=== PATIENT | male | born 1985 | race Caucasian/White ===

== ENCOUNTER 2024-12-01 15:37 | Emergency (ER) | payer OTHER, SELFPAY ==
[2024-12-01] VITALS (19 sets, daily range): BP systolic 132–168; BP diastolic 81–94; PULSE 81–119; TEMP 37.3; O2SAT 93–98; BMI 33.8
--- OUTSIDE RECORDS SUMMARY | 2024-12-01 15:50 | XMS_ITS | Clinical Summary ---
Author Organization [facility] Address [address] [place] [address] Phone Care Team Providers Care General Dentist/Owner Name Role Phone Case, Siria Zafar WAREHOUSE ORDER SELECTOR-PSYCHIATRIC AIDES TEACHER Primary Care Provider Social History Tobacco Use Types Packs/Day Years Used Date Smoking Tobacco: Never Assessed Sex and Gender Information Value Date Recorded Sex Assigned at Not on file Legal Sex Male 9:12 AM EST Gender Identity Not on file Sexual Orientation Not on file Plan of Treatment Health Maintenance Due Date Last Done Comments HIV Screening 1985 Yearly Adult Physical 1985 MMR Vaccines (1 of 1 - Stand radha series) 1988 Varicella Vaccines (1 of 2 - 13+ 2-dose series) 2000 Diabetes Screening 2005 Hepatitis C Screening 2005 Hepatitis B Vaccines (1 of 3 - 19+ 3-dose series) 2006 DTaP/Tdap/Td Vaccines (1 - Tdap) 02/24/2024 02/23/20 24 COVID-19 Vaccine ( - 2023-2 5 season) 2024 Influenza Vaccine (Season Ended) 2025 05/02/20 20 Lipid Panel 07/21/2029 07/21/2024 Zoster Vaccines (1 of 2) 2037 HIB Vaccines Aged Out No longer eligi ble based on patient's age to complete this topic HPV Vaccines Aged Out No longer eligi ble based on patient's age to complete this topic Hepatitis A Vaccines Aged Out No long er eligible based on patient's age to complete this topic IPV Vaccines Aged Out No longer eligi ble based on patient's age to complete this topic Meningococcal Vaccine Aged Out No anupam page eligible based on patient's age to complete this topic Pneumococcal Vaccine: Pediat rics and At-Risk Adult Patients Aged Out No longer martir sheilale based on patient's age to complete this topic Rotavirus Vaccines Aged Out No longer eligible based on patient's age to complete this topic Care Teams General Dentist/Owner Relationship Specialty Start Date End Date Case, Siria L, WAREHOUSE ORDER SELECTOR-PSYCHIATRIC AIDES TEACHER [address] [place] [address] PCP - General Family Medicine 08/09/24
--- OUTSIDE RECORDS SUMMARY | 2024-12-01 15:50 | XMS_ITS | Clinical Summary ---
Author Organization [facility] Address [address] [place] [address] Care Team Providers Care Fuel Technician Name Role Phone Jane Lerma MD Primary Care Provider [phone] Allergies No known active allergies Medications atorvastatin (Lipitor) 20 MG tabletIndications: Mixed hyperlipidemia (CMS/HCC) Take 1 tablet (20 mg) by mouth Daily 90 tablet 3 07/21/19 25 026 Active amLODIPine (Norvasc) 2.5 MG tabletIndications: Benign essential hypertension (CMS/HCC) Take 1 tablet (2.5 mg) by mouth Daily 90 tablet 3 07/21/19 25 026 Active hydrocortisone 2.5 % creamIndications:A thlete's foot on left Apply topically 2 (two) times a day Apply to left foot with ketoconazole cream twice a day for 30 days and then use as needed for flare ups 60 g 2 07/21/19 25 026 Active Active Problems No known active problems Encounters Date Type Department Care Team Description 09/21/2024 Telephone [facility] [address] [place] [address] Edilia Ricks MA from Last 3 Months Family History Medical History Relation Name Comments Heart disease Father Heart disease Mother Hypertension Mother Relation Name Status Comments Father Mother Social History Tobacco Use Types Packs/Day Years Used Date Smoking Tobacco: Unknown Smokeless Tobacco: Current Chew Tobacco Cessation:Ready to Q uit: Not Asked; Counseling Given: Not Answered Sex and Gender Information Value Date Recorded Sex Assigned at Not on file Legal Sex Male 6:33 PM EDT Gender Identity Not on file Sexual Orientation Not on file Last Filed Vital Signs Vital Sign Reading Time Taken Comments Blood Pressure 132/82 07/21/2024 9:14 AM EST Pulse 80 07/21/2024 9:14 AM EST Temperature 36.6 C (97.8 F) 07/21/2024 9:14 AM EST Respiratory Rate 17 07/21/2024 9:14 AM EST Oxygen Saturation 97% 07/21/2024 9:14 AM EST Inhaled Oxygen Concentration - - Weight 109 kg (240 lb) 07/21/2024 9:14 AM EST Height 172.7 cm (5' 8 ) 07/21/2024 9:14 AM EST Body Mass Index 36.49 07/21/2024 9:14 AM EST Plan of Treatment Health Maintenance Due Date Last Done Comments Influenza Vaccine (Season Ended) 2025 05/02/20 20 Insurance [employer] Care Teams Fuel Technician Relationship Specialty Start Date End Date Jane Lerma MD [address] [place] [address] PCP - General Family Medicine 05/12/24
--- OUTSIDE RECORDS SUMMARY | 2024-12-01 15:50 | XMS_ITS | Clinical Summary ---
Author Organization [facility] Address [address] [place] [address] Care Team Providers Care Epic Manager Name Role Phone Unavailable Primary Care Provider Unavailabl e Social History Tobacco Use Types Packs/Day Years Used Date Smoking Tobacco: Never Assessed Area Deprivation Index Answer Date Kirk rded National Score (1-100), lower number is lower ri sk Not on file 06/14/2020 State Score (1-10), lower number is lower risk N ot on file 06/14/2020 Data from: https://www.neighborhoodatlas.medicine.[facility]/. Last address used for calculation Not on file 06/14/2020 Sex and Gender Information Value Date Recorded Sex Assigned at Not on file Legal Sex Male 8:30 AM EDT Gender Identity Not on file Sexual Orientation Not on file Plan of Treatment Health Maintenance Due Date Last Done Comments Anxiety Screening 2005 Depression Screening 2005 HIV Screening 2005 Hepatitis C Screening 2005 DTaP,Tdap,Td Vaccine (1 - Tdap) 2006 Hepatitis B Vaccine (1 of 3 - 19+ 3-dose series) 04/08 Lipid Screening 2022 Covid-19 Vaccine ( season) 2024 Influenza Vaccine (Season Ended) 2025 Insurance [facility] P[facility]
--- OUTSIDE RECORDS SUMMARY | 2024-12-01 15:50 | XMS_ITS | Encounter Summary ---
Author Organization [facility] Address [address] [place] [address] Phone Care Team Providers Care Epic Ambulatory Analysts Name Role Phone Chiquita Bateman Primary Care Provider Reason for Referral * Imaging (Routine) - Pending Review Specialty Diagnoses / Procedures Referred By Ivan lyons Referred To Contact Radiology Diagnoses Family history of ischemic heart disease and other diseases of the circulatory system Mixed hyperlipidemia Essential (primary) hypertension Procedures CT cardiac scoring wo IV contrast Chiquita Bateman APRN-CNP [address] [place] [address] Phone: tel: fax: Referral ID Status Reason Start Date Expiration Date Visits Requested Visits Authorized [id number] Pending Review Perform Procedure 07/26/2024 07/26/2025 1 1 Encounter Details Date Type Department Care Team (Late st Contact Info) Description 07/26/2024 Transcribe Orders [facility] [[email or web address] [address] [place] [address] Chiquita Bateman APRN-CNP [address] [place] [address] Family history of ischemic heart disease and other diseases of the circulatory system (Primary Dx); Mixed hyperlipidemia; Essential (primary) hypertension Social History Tobacco Use Types Packs/Day Years Used Date Smoking Tobacco: Never Assessed Sex and Gender Information Value Date Recorded Sex Assigned at Not on file Legal Sex Male 9:12 AM EST Gender Identity Not on file Sexual Orientation Not on file documented as of this encounter Plan of Treatment Not on file documented as of this encounter Results * CT cardiac scoring wo IV contrast (08/09/2024 7:44 PM EST) Anatomical Region Laterality Modality Thoracic, Chest Computed Tomogra phy 08/10/2024 3:57 PM EST 08/10/2024 6:17 PM EST Addenda Addendum by Julieta Bhatti MD on 08/10/2024 6:16 PM EST Interpreted By: Tino Bhatti, ADDENDUM: Technical: The following is to serve as an over-read for an unenhanced cardiac CT, to evaluate the extravascular structures. Contiguous unenhanced CT sections are performed from level the ella to the upper abdomen. Findings: The visualized portions of both lungs are clear. There is no sign of pathologic lymph node enlargement. There is no pericardial or pleural effusion. Images through the upper abdomen are unremarkable. The visualized osseous structures are unremarkable. Findings: The visualized extravascular structures are within normal limits. Signed by: Tino Bhatti 08/10/2024 6:16 PM -------- ORIGINAL REPORT -------- Dictation workstation: [id number] Impressions 08/10/2024 3:56 PM EST 1. Coronary artery calcium score of 36*. 2. FLORENCE 90th percentile for age, gender, and race in asymptomatic patients. *Coronary Artery Agatston score Score risk Very low 1-99 Mildly increased 100-299 Moderately increased >300 Moderate to severely increased >800 Darien et al. JCCT 2016 (http://dx.doi.org/10.1016/j.jcct.2016.11.003) FLORENCE Percentile In general, greater than 75th percentile for age, gender, and race is considered to be a higher relative risk and higher lifetime risk condition. Greater than 75th percentile=moderate to severely increased relative risk irrespective of the score. Advise using FLORENCE 10 year CHD risk calculator below for better discrimination of risk. FLORENCE 10-Year CHD Risk with Coronary Artery Calcification can be calcuate using link below https://www.florence-nhlbi.org/MESACHDRisk/MesaRiskScore/RiskScore.aspx Mike. JACC 2015 (http://dx.doi.org/10.1016/j.j acc.2015.08.035) Reading Disability Case Manager: Dr. Tino Solares, Date: 08/10/2024 3:55 pm Signed by: Tino Solares 08/10/2024 3:56 PM Dictation workstation: [id number] Narrative 08/10/2024 3:56 PM EST Interpreted By: Tino Solares, STUDY: CT CARDIAC SCORING WO IV CONTRAST; 08/09/2024 7:44 pm INDICATION: Signs/Symptoms:SCREENING. COMPARISON: None. ACCESSION NUMBER(S): [id number] ORDERING CLINICIAN: CHIQUITA CASE TECHNIQUE: Using prospective ECG gating, CT scan of the coronary arteries was performed without intravenous contrast. Coronary calcium scoring was performed according to the method of Agatston. CT Dose-Length Product (DLP): 63.3 mGy*cm CT Dose Reduction Employed: Yes, prospective gating, iterative reconstruction. FINDINGS: The score and distribution of calcium in the coronary arteries is as follows: LM 0 LAD 36 LCx 0 RCA 0 Total 36 The visualized ascending thoracic aorta measures 3.2 cm in diameter. The heart is normal in size. No pericardial effusion is present. The main pulmonary artery, right and left pulmonary artery are normal in size. Procedure Note Tino Solares DO / Julieta Bhatti MD - 08/10/2024 Interpreted By: Tino Solares, STUDY: CT CARDIAC SCORING WO IV CONTRAST; 08/09/2024 7:44 pm INDICATION: Signs/Symptoms:SCREENING. COMPARISON: None. ACCESSION NUMBER(S): [id number] ORDERING CLINICIAN: CHIQUITA BATEMAN TECHNIQUE: Using prospective ECG gating, CT scan of the coronary arteries was performed without intravenous contrast. Coronary calcium scoring was performed according to the method of Agatston. CT Dose-Length Product (DLP): 63.3 mGy*cm CT Dose Reduction Employed: Yes, prospective gating, iterative reconstruction. FINDINGS: The score and distribution of calcium in the coronary arteries is as follows: LM 0 LAD 36 LCx 0 RCA 0 Total 36 The visualized ascending thoracic aorta measures 3.2 cm in diameter. The heart is normal in size. No pericardial effusion is present. The main pulmonary artery, right and left pulmonary artery are normal in size. IMPRESSION: 1. Coronary artery calcium score of 36*. 2. FLORENCE 90th percentile for age, gender, and race in asymptomatic patients. *Coronary Artery Agatston score Score risk Very low 1-99 Mildly increased 100-299 Moderately increased >300 Moderate to severely increased >800 Darien et al. JCCT 2016 (http://dx.doi.org/10.1016/j.jcct.2016.11.003) FLORENCE Percentile In general, greater than 75th percentile for age, gender, and race is considered to be a higher relative risk and higher lifetime risk condition. Greater than 75th percentile=moderate to severely increased relative risk irrespective of the score. Advise using FLORENCE 10 year CHD risk calculator below for better discrimination of risk. FLORENCE 10-Year CHD Risk with Coronary Artery Calcification can be calcuate using link below https://www.florence-nhlbi.org/MESACHDRisk/MesaRiskScore/RiskScore.aspx Mike. JACC 2014 (http://dx.doi.org/10.1016/j.j acc.2015.08.035) Reading Disability Case Manager: Dr. Tino Solares, Date: 08/10/2024 3:55 pm Signed by: Tino Solares 08/10/2024 3:56 PM Dictation workstation: [id number] Chiquita TUTTLE IM CT PROCEDURES Edit ed Result - Final documented in this encounter Visit Diagnoses Diagnosis Family history of ischemic heart disease and other diseases of the circulatory system- Primary Mixed hyperlipidemia Essential (primary) hypertension Unspecified essential hypertension Family history of ischemic heart disease and other diseases of the circulatory system Mixed hyperlipidemia Essential (primary) hypertension Unspecified essential hypertension documented in this encounter Care Teams Epic Ambulatory Analysts Relationship Specialty Start Date End Date Chiquita Batmean APRN-CNP [address] [place] [address] PCP - General Family Medicine 08/09/24 documented as of this encounter
--- OUTSIDE RECORDS SUMMARY | 2024-12-01 15:50 | XMS_ITS | Encounter Summary ---
Author Organization [employer] Address [id number] [address] [place] [address] Care Team Providers Care Bootmaker Name Role Phone Cecilio Mendenhall MD Primary Care Provider [phone] Reason for Visit * Reason Comments Med Refill Encounter Details Date Type Department Care Team (Late st Contact Info) Description 10/27/2023 Refill [facility] [address] [place] [address] [address] [place] [address] Cecilio Mendenhall MD [address] [place] [address], [address] [place], [place] [id number] Social History Tobacco Use Types Packs/Day Years Used Date Smoking Tobacco: Never Smokeless Tobacco: Never Alcohol Use Standard Drinks/Week Comments Yes 0 (1 standard drink = 0.6 oz pur e alcohol) PHQ-2 Answer Date Recorded Total Score 0 08/11/2022 Childcare Answer Date Recorded Childcare Unknown 12/14/2018 Employment Answer Date Recorded Employment Unknown 12/14/2018 Hunger Screening Answer Date Recorded Within the past 12 months we worried whether our food would run out before we got money to buy more. Never True 08/11/2022 Within the past 12 months th e food we bought just didn't last and we didn't have money to get more. Never True 08/11/2022 Sex and Gender Information Value Date Recorded Sex Assigned at Not on file Legal Sex Male 11:35 AM EDT Gender Identity Not on file Sexual Orientation Not on file documented as of this encounter Miscellaneous Notes * Telephone Encounter - Teodora Carter CMA - 10/27/2023 9:48 AM EDT Patient needs an appointment for further refills documented in this encounter Plan of Treatment Not on file documented as of this encounter Visit Diagnoses Not on filedocumented in this encounter Additional Health Concerns Assessment Noted Time PHQ-9 Depression Total Score: 0 08/11/19 23 3:22 PM EST documented as of this encounter Care Teams Bootmaker Relationship Specialty Start Date End Date Cecilio Mendenhall MD [address] [place] [address], [address] [place] [address] PCP - General Pediatrics 08/11/22 07/21/24 documented as of this encounter
--- OUTSIDE RECORDS SUMMARY | 2024-12-01 15:50 | XMS_ITS | Encounter Summary ---
Author Organization [facility] Address [facility] [address] [place] [address] Care Team Providers Care Machine Feeder Floorperson Name Role Phone Cecilio Mendenhall MD Primary Care Provider [phone] Reason for Visit * Reason Onset Date Comments Med Refill 05/09/2024 Encounter Details Date Type Department Care Team (Late st Contact Info) Description 05/09/2024 Refill [facility] [address] [facility] [address] [place] [address] Teodora Carter CMA Social History Tobacco Use Types Packs/Day Years [...] documented as of this encounter Care Teams Machine Feeder Floorperson Relationship Specialty Start Date End Date Cecilio Mendenhall MD [address] [place] [address], [address] [place] [address] PCP - General Pediatrics 08/11/22 07/21/24 documented as of this encounter
--- OUTSIDE RECORDS SUMMARY | 2024-12-01 15:50 | XMS_ITS | Clinical Summary ---
Author Organization [employer] [facility] Address [id number] [address] [place] [address] Care Team Providers Care Rn Faculty Name Role Phone Unavailable Primary Care Provider Unavailabl e Allergies No known active allergies Medications * This document contains information received from the source organization and may not represent a complete record from that organization. albuterol (PROVENTIL HFA;VENTOLIN HFA) 90 mcg/actuation inhalerIndicatio ns:Bronchitis Inhale 2 puffs 4 (four) times a day. 18 g 10/08/2023 Active atorvastatin (LIPITOR) 20 mg tablet Take 1 tablet (20 mg total) by mouth in the morning. 90 tablet 05/12/2024 Active Active Problems Problem Noted Date Diagnosed Date Hyperlipidemia Family History Medical History Relation Name Comments Hyperlipidemia Mother Relation Name Status Comments Father Alive Mother Alive Social History Tobacco Use Types Packs/Day Years Used Date Smoking Tobacco: Never Smokeless Tobacco: Never Tobacco Cessation:Counseling Given: No Alcohol Use Standard Drinks/Week Comments Yes 0 [...] got money to buy more. Never True 07/19/2024 Within the past 12 months th e food we bought just didn't last and we didn't have money to get more. Never True 07/19/2024 Sex and Gender Information Value Date Recorded Sex Assigned at Not on file Legal Sex Male 11:35 AM EDT Gender Identity Not on file Sexual Orientation Not on file Last Filed Vital Signs Vital Sign Reading Time Taken Comments Blood Pressure 127/81 07/19/2024 9:30 PM EST Pulse 71 07/19/2024 9:30 PM EST Temperature 36.8 C (98.3 F) 07/19/2024 6:43 PM EST Respiratory Rate 15 07/19/2024 9:30 PM EST Oxygen Saturation 95% 07/19/2024 9:30 PM EST Inhaled Oxygen Concentration - - Weight 105.7 kg (233 lb) 07/19/2024 6:43 PM EST Height 172.7 cm (5' 8 ) 07/19/2024 6:43 PM EST Body Mass Index 35.43 07/19/2024 6:43 PM EST Plan of Treatment Health Maintenance Due Date Last Done Comments Adult BMI Follow Up Plan 2005 Depression Screening 08/11/2023 08/11/2022 COVID-19 Vaccine ( season) 2024 Tobacco Screening 10/07/2024 10/08/2023 Influenza Vaccine 03/05/2025 05/02/2020 Adult BMI Screening 07/19/2025 07/19/2024 DTaP,Tdap and Td Vaccines (2 - Td or Tdap) 02/22/2034 02/23/2024 Medical Devices Not on file Insurance [employer]
--- NOTE | 2024-12-01 16:00 | ECG_ITS ---
[facility] Test Date: 2024-12-01 Pat Name: BASIM CARBAJAL Department: Room: - Gender: Male Photography Manager: : 1985 Requested By: 0923 Order Number: [id number] Reading MD: KAREN FLANNERY M.D. Measurements Intervals [place] Rate: 116 P: 60 [place]: 132 QRS: 33 QRSD: 90 T: 6 QT: 320 QTc: 389 Interpretive Statements 1120 Sinus tachycardia 4068 Nonspecific Twave abnormality 8102 Low QRS voltage in chest leads 9140 abnormal rhythm ECG No previous ECG available for comparison Electronically Signed On 12-01-2024 17:35:05 EDT by KAREN FLANNERY M.D.
--- NOTE | 2024-12-01 16:00 | XR_ITS ---
[facility] [place] [id number] Patient Name: BASIM CARBAJAL MRN: [id number] date: 1985 Sex: M Assigned Patient Location: ER Current Patient Location: ER Accession/Order Number: [id number] Exam Date: 12/01/2024 17:04 Report Date: 12/01/2024 17:05 At the request of: KAIDEN WEAVER Procedure: XR chest 2V XR chest 2V 12/01/2024 4:35 PM SIGNS AND SYMPTOMS: ^chest pain , tachycardia PROTOCOL: Frontal and lateral radiograph chest COMPARISON: None FINDINGS: The trachea is midline. The heart and mediastinal structures are within normal limits. The lung parenchyma is clear. The bony thorax is intact. Degenerative changes are noted in the thoracic spine. XR/XR chest 2V IMPRESSION: No acute cardiopulmonary pathology. Impression dictated by: Lance Richards M.D. 12/01/2024 5:05 PM Dictation Location: [facility]ITAL[facility] Electronically authenticated by: [id number] Y Date: 12/01/2024 17:05
[2024-12-01 16:09] LABS: Basophils Absolute Auto 0.1 10^3/uL (0.0-0.1); Basophils Percent Auto 0.6 % (0.2-2.0); Eosinophils Absolute Auto 0.5 10^3/uL (0.0-0.7); Eosinophils Percent Auto 4.9 % (0.9-7.0); Hematocrit 43.9 % (42.0-54.0); Hemoglobin 15.5 g/dL (14.0-18.0); Immature Granulocytes Abs Auto 0.05 10^3/uL (0.00-0.03); Immature Granulocytes Pct Auto 0.5 % (0.0-0.5); Lymphocytes Absolute Auto 2.9 10^3/uL (1.2-3.8); Lymphocytes Percent Auto 29.5 % (20.5-60.0); Mean Corpuscular HGB Conc 35.3 g/dL (29.9-35.2); Mean Corpuscular Hemoglobin 29.6 pg (25.9-34.0); Mean Corpuscular Volume 83.9 fL (80.0-94.0); Mean Platelet Volume 9.3 fL (9.5-13.5); Monocytes Absolute Auto 0.8 10^3/uL (0.3-0.8); Monocytes Percent Auto 8.7 % (1.7-12.0); Neutrophils Absolute Auto 5.4 10^3/uL (1.4-6.5); Neutrophils Percent Auto 55.8 % (43.0-75.0); Platelet Count 330 10^3/uL (150-450); Red Blood Count 5.23 10^6/uL (4.70-6.10); Red Cell Distribution Width 12.6 % (11.0-15.0); White Blood Count 9.7 10^3/uL (4.0-11.0)
--- NOTE | 2024-12-01 16:19 | ED.GENADUL1 ---
Documented by User: Emily Auguste 12/01/24 18:23 HPI HPI - General Adult General Chief complaint: Chest Pain Stated complaint: DIZZY, HEART RACING Time Seen by Provider: 12/01/24 15:55 Source: patient Mode of arrival: walk-in Limitations: no limitations History of Present Illness HPI narrative: 39-year-old male presents emergency room chief complaint of dizzy and heart racing. Patient states symptoms began prior to arrival. He states he took his Mounjaro shot earlier this morning drank coffee and followed by 2 monster drinks. Patient states he forgot to take his blood pressure medication. He began to feel heart racing and chest palpitations. He denies any pain at this time. He states he was sitting in his garage and the symptoms lasted for approximately 15 to 20 minutes. He denies any nausea or vomiting. He is alert and oriented. Denies known history of cardiac issues issues. History of hypertension but did not take his medicine prior to this incident. He did take his medication just prior to arrival to the emergency room. Related Data Home Medications ?Medication ?Instructions ?Recorded ?Confirmed amlodipine 2.5 mg tablet mg 12/01/24 atorvastatin 20 mg tablet mg 12/01/24 Allergies Allergy/AdvReac Type Severity Reaction Status Date / Time No Known Drug Allergies Allergy Verified 12/01/24 15:43 Opioid HPI Opioid Management Most Recent Opioid Data: Last Pain Scale 0 Today, 15:44 Review of Systems ROS Status of ROS 10 or more systems reviewed and unremarkable except as noted in history and below PFSH PFSH Social History Little interest or pleasure in doing things: not at all Feeling down, depressed, or hopeless: not at all Exam Narrative Exam Narrative: All Systems are negative except as noted/marked.All systems reviewed and otherwise negative Nurses note and vital signs reviewed and patient is not hypoxic. General: The patient appears well and in no apparent distress. Patient is resting comfortably on cart. Skin: Warm, dry, no pallor noted. There is no rash noted. Head: Normocephalic, atraumatic Eye: Normal conjunctiva, no drainage, EOMI. PERRL Ears, Nose, Mouth, and Throat: oral mucosa is moist. Nares patent. Mouth without vesicles. Ear canals patent. Tm's without Erythema Cardiovascular: Regular Rate and Rhythm Respiratory: Patient is in no distress, no accessory muscle use, lungs are clear to auscultation, no wheezing, rales or rhonchi Back: non-tender, no CVA tenderness bilaterally to percussion. GI: Normal bowel sounds, no tenderness to palpation, no masses appreciated. No rebound, guarding, or rigidity noted. Musculoskeletal: The patient has no evidence of calf tenderness, no pitting edema, symmetrical pulses noted bilaterally Neurological: A&O x4, normal speech Psychiatric: Cooperative Constitutional Vital Signs, click to edit/add: Last Vital Signs Temp 99.1 F 12/01/24 15:44 Pulse 119 H 12/01/24 15:44 Resp 19 12/01/24 15:44 BP 168/94 H 12/01/24 15:44 Pulse Ox 97 12/01/24 15:44 O2 Del Method Room Air 12/01/24 15:44 Course Vital Signs Vital signs: Vital Signs Temperature 99.1 F 12/01/24 15:44 Pulse Rate 119 H 12/01/24 15:44 Respiratory Rate 19 12/01/24 15:44 Blood Pressure 168/94 H 12/01/24 15:44 Pulse Oximetry 97 12/01/24 15:44 Oxygen Delivery Method Room Air 12/01/24 15:44 Temperature 99.1 F 12/01/24 15:44 Pulse Rate 119 H 12/01/24 15:44 Respiratory Rate 19 12/01/24 15:44 Blood Pressure 168/94 H 12/01/24 15:44 Pulse Oximetry 97 12/01/24 15:44 Oxygen Delivery Method Room Air 12/01/24 15:44 Medical Decision Making MDM Narrative Medical decision making narrative: 39-year-old male presents emergency room chief complaint of dizzy and heart racing. Patient states symptoms began prior to arrival. He states he took his Mounjaro shot earlier this morning drank coffee and followed by 2 monster drinks. Patient states he forgot to take his blood pressure medication. He began to feel heart racing and chest palpitations. He denies any pain at this time. He states he was sitting in his garage and the symptoms lasted for approximately 15 to 20 minutes. He denies any nausea or vomiting. He is alert and oriented. Denies known history of cardiac issues issues. History of hypertension but did not take his medicine prior to this incident. He did take his medication just prior to arrival to the emergency room. Emergency room chief complaint of palpitations and dizziness. After fluids and his hypertension medication they took at home for taken patient feels much better at this time blood pressure has normalized he is no longer has any palpitations. I believe his symptoms are due to the Monster drink and caffeine that he took. He has also been taking Mounjaro. ekg, and labs including 2 troponins were both normal. Patient feels much better comfortable going home. Differential Diagnosis Differential Diagnosis: chest pain, palpitaions, dizziness Medical Records Medical records reviewed: Yes I reviewed the patient's medical records Lab Data Lab results reviewed: Yes I reviewed the patient's lab results Labs: Lab Results 12/01/24 12/01/24 Range/Units 15:56 17:08 WBC 9.7 (4.0-11.0) 10^3/uL RBC 5.23 (4.70-6.10) 10^6/uL Hgb 15.5 (14.0-18.0) g/dL Hct 43.9 (42.0-54.0) % MCV 83.9 (80.0-94.0) fL MCH 29.6 (25.9-34.0) pg MCHC 35.3 H (29.9-35.2) g/dL RDW 12.6 (11.0-15.0) % Plt Count 330 (150-450) 10^3/uL MPV 9.3 L (9.5-13.5) fL Neut % (Auto) 55.8 (43.0-75.0) % Lymph % (Auto) 29.5 (20.5-60.0) % [place] % (Auto) 8.7 (1.7-12.0) % Eos % (Auto) 4.9 (0.9-7.0) % Baso % (Auto) 0.6 (0.2-2.0) % Neut # (Auto) 5.4 (1.4-6.5) 10^3/uL Lymph # (Auto) 2.9 (1.2-3.8) 10^3/uL [place] # (Auto) 0.8 (0.3-0.8) 10^3/uL Eos # (Auto) 0.5 (0.0-0.7) 10^3/uL Baso # (Auto) 0.1 (0.0-0.1) 10^3/uL Abs Immat Gran (auto) 0.05 H (0.00-0.03) 10^3/uL Imm/Tot Granulo (auto) 0.5 (0.0-0.5) % PT 11.4 (9.0-11.6) sec INR 1.08 APTT 25.2 (22.3-36.2) sec Sodium 143 (136-145) mmol/L Potassium 3.4 L (3.5-5.1) mmol/L Chloride 104 (98-107) mmol/L Carbon Dioxide 26.8 (21.0-32.0) mmol/L Anion Gap 15.6 BUN 22.0 H (7.0-18.0) mg/dL Creatinine 0.98 (0.70-1.30) mg/dL Est GFR ( Amer) >60 (>=60 mL/min/1.73m^2) Est GFR (Non-Af Amer) >60 (>=60 mL/min/1.73m^2) BUN/Creatinine Ratio 22.4 Glucose 129 H (74-106) mg/dL Calcium 8.6 (8.5-10.1) mg/dL Total Bilirubin 0.5 (0.2-1.0) mg/dL AST 19 (15-37) U/L ALT 38 (16-63) U/L Alkaline Phosphatase 56 (46-116) U/L Troponin I High Sens 8.1 5.1 (4.0-76.1) pg/mL Total Protein 7.2 (6.4-8.2) g/dL Albumin 3.6 (3.4-5.0) g/dL Globulin 3.6 g/dL Albumin/Globulin Ratio 1.0 Imaging Data Chest x-ray: Attestation: I have reviewed the pertinent imaging results. Radiologist's impression: ITS Impressions Chest X-Ray 12/01/24 16:00 IMPRESSION: No acute cardiopulmonary pathology. Impression dictated by: Lance Richards M.D. 12/01/2024 5:05 PM Dictation Location: [place] [address] Electronically authenticated by: [id number] Y Date: 12/01/2024 17:05 ECG Data Interpretation: 1545 Sinus tachycardia with a rate 116 bpm MI interval 132 ms QRS duration 90 ms artifact noted no acute STEMI Discharge Plan Discharge Chief Complaint: Chest Pain Clinical Impression: Dizziness, Heart palpitations Patient Disposition: Home, Self-Care Time of Disposition Decision: 17:41 Condition: Good Prescriptions / Home Meds: No Action atorvastatin 20 mg tablet amlodipine 2.5 mg tablet Print Language: Ukrainian Instructions: Heart Palpitations (ED), Dizziness (ED) Referrals: CHIQUITA PERKINS [Primary Care Provider, Unknown] - 1 week Documented by User: Lavell Roberts MD 12/01/24 18:29 HPI HPI - General Adult General Chief complaint: Chest Pain Stated complaint: DIZZY, HEART RACING Time Seen by Provider: 12/01/24 15:55 Related Data Home Medications ?Medication ?Instructions ?Recorded ?Confirmed amlodipine 2.5 mg tablet mg 12/01/24 atorvastatin 20 mg tablet mg 12/01/24 Allergies Allergy/AdvReac Type Severity Reaction Status Date / Time No Known Drug Allergies Allergy Verified 12/01/24 15:43 Opioid HPI Opioid Management Most Recent Opioid Data: Last Pain Scale 0 Today, 15:44 PFSH PFSH Social History Little interest or pleasure in doing things: not at all Feeling down, depressed, or hopeless: not at all Exam Constitutional Vital Signs, click to edit/add: Last Vital Signs Temp 99.1 F 12/01/24 15:44 Pulse 119 H 12/01/24 15:44 Resp 19 12/01/24 15:44 BP 168/94 H 12/01/24 15:44 Pulse Ox 97 12/01/24 15:44 O2 Del Method Room Air 12/01/24 15:44 Course Vital Signs Vital signs: Vital Signs Temperature 99.1 F 12/01/24 15:44 Pulse Rate 119 H 12/01/24 15:44 Respiratory Rate 19 12/01/24 15:44 Blood Pressure 168/94 H 12/01/24 15:44 Pulse Oximetry 97 12/01/24 15:44 Oxygen Delivery Method Room Air 12/01/24 15:44 Temperature 99.1 F 12/01/24 15:44 Pulse Rate 119 H 12/01/24 15:44 Respiratory Rate 19 12/01/24 15:44 Blood Pressure 168/94 H 12/01/24 15:44 Pulse Oximetry 97 12/01/24 15:44 Oxygen Delivery Method Room Air 12/01/24 15:44 Medical Decision Making MDM Narrative Medical decision making narrative: 39-year-old male presents emergency room chief complaint of dizzy and heart racing. Patient states symptoms began prior to arrival. He states he took his Mounjaro shot earlier this morning drank coffee and followed by 2 monster drinks. Patient states he forgot to take his blood pressure medication. He began to feel heart racing and chest palpitations. He denies any pain at this time. He states he was sitting in his garage and the symptoms lasted for approximately 15 to 20 minutes. He denies any nausea or vomiting. He is alert and oriented. Denies known history of cardiac issues issues. History of hypertension but did not take his medicine prior to this incident. He did take his medication just prior to arrival to the emergency room. Emergency room chief complaint of palpitations and dizziness. After fluids and his hypertension medication they took at home for taken patient feels much better at this time blood pressure has normalized he is no longer has any palpitations. I believe his symptoms are due to the Monster drink and caffeine that he took. He has also been taking Mounjaro. ekg, and labs including 2 troponins were both normal. Patient feels much better comfortable going home. Patient has been on the monitor continuously for 3 hours. Patient had 2 troponins done. EKG has been done. Lab work. Critical care time 32 minutes exclusive from separate billable procedures that were performed. The following was considered in the determination of critical care but not limited to the level of medical decision making, intensive cardiac and/or respiratory monitoring, frequent vital sign monitoring, evaluation of laboratory studies, evaluation of radiographic studies, oxygen monitoring, and constant monitoring and speaking to family at bedside I, Dr Roberts, have reviewed the above progress note and course of action in the ER; agree with the above. I have personally gone over history and physical, and discussed disposition and treatment plan with the PA. Lab Data Labs: Lab Results 05/30/25 05/30/25 Range/Units 15:56 17:08 WBC 9.7 (4.0-11.0) 10^3/uL RBC 5.23 (4.70-6.10) 10^6/uL Hgb 15.5 (14.0-18.0) g/dL Hct 43.9 (42.0-54.0) % MCV 83.9 (80.0-94.0) fL MCH 29.6 (25.9-34.0) pg MCHC 35.3 H (29.9-35.2) g/dL RDW 12.6 (11.0-15.0) % Plt Count 330 (150-450) 10^3/uL MPV 9.3 L (9.5-13.5) fL Neut % (Auto) 55.8 (43.0-75.0) % Lymph % (Auto) 29.5 (20.5-60.0) % [place] % (Auto) 8.7 (1.7-12.0) % Eos % (Auto) 4.9 (0.9-7.0) % Baso % (Auto) 0.6 (0.2-2.0) % Neut # (Auto) 5.4 (1.4-6.5) 10^3/uL Lymph # (Auto) 2.9 (1.2-3.8) 10^3/uL [place] # (Auto) 0.8 (0.3-0.8) 10^3/uL Eos # (Auto) 0.5 (0.0-0.7) 10^3/uL Baso # (Auto) 0.1 (0.0-0.1) 10^3/uL Abs Immat Gran (auto) 0.05 H (0.00-0.03) 10^3/uL Imm/Tot Granulo (auto) 0.5 (0.0-0.5) % PT 11.4 (9.0-11.6) sec INR 1.08 APTT 25.2 (22.3-36.2) sec Sodium 143 (136-145) mmol/L Potassium 3.4 L (3.5-5.1) mmol/L Chloride 104 (98-107) mmol/L Carbon Dioxide 26.8 (21.0-32.0) mmol/L Anion Gap 15.6 BUN 22.0 H (7.0-18.0) mg/dL Creatinine 0.98 (0.70-1.30) mg/dL Est GFR ( Amer) >60 (>=60 mL/min/1.73m^2) Est GFR (Non-Af Amer) >60 (>=60 mL/min/1.73m^2) BUN/Creatinine Ratio 22.4 Glucose 129 H (74-106) mg/dL Calcium 8.6 (8.5-10.1) mg/dL Total Bilirubin 0.5 (0.2-1.0) mg/dL AST 19 (15-37) U/L ALT 38 (16-63) U/L Alkaline Phosphatase 56 (46-116) U/L Troponin I High Sens 8.1 5.1 (4.0-76.1) pg/mL Total Protein 7.2 (6.4-8.2) g/dL Albumin 3.6 (3.4-5.0) g/dL Globulin 3.6 g/dL Albumin/Globulin Ratio 1.0 Imaging Data Chest x-ray: Radiologist's impression: ITS Impressions Chest X-Ray 12/01/24 16:00 IMPRESSION: No acute cardiopulmonary pathology. Impression dictated by: Lance Richards M.D. 12/01/2024 5:05 PM Dictation Location: [place] [address] Electronically authenticated by: [id number] Y Date: 12/01/2024 17:05 Discharge Plan Discharge Chief Complaint: Chest Pain Clinical Impression: Dizziness, Heart palpitations Patient Disposition: Home, Self-Care Time of Disposition Decision: 17:41 Condition: Good Prescriptions / Home Meds: No Action atorvastatin 20 mg tablet amlodipine 2.5 mg tablet Print Language: Ukrainian Instructions: Heart Palpitations (ED), Dizziness (ED) Referrals: CHIQUITA PERKINS [Primary Care Provider, Unknown] - 1 week
[2024-12-01] MEDS: 0.9 % SODIUM CHLORIDE 1,000 ML 1000 ML IV (16:25)
[2024-12-01 16:27] LABS: INR 1.08; Partial Thromboplastin Time 25.2 sec (22.3-36.2); Prothrombin Time 11.4 sec (9.0-11.6)
[2024-12-01 16:28] LABS: Alanine Aminotransferase 38 U/L (16-63); Albumin Level 3.6 g/dL (3.4-5.0); Alkaline Phosphatase 56 U/L (46-116); Anion Gap 15.6; Aspartate Amino Transferase 19 U/L (15-37); BUN Creatinine Ratio 22.4; Bilirubin Total 0.5 mg/dL (0.2-1.0); Calcium 8.6 mg/dL (8.5-10.1); Carbon Dioxide 26.8 mmol/L (21.0-32.0); Chloride 104 mmol/L (98-107); Estimated GFR (African America >60 (>=60 mL/min/1.73m^2); Estimated GFR (Non-African Ame >60 (>=60 mL/min/1.73m^2); Globulin 3.6 g/dL; Glucose 129 mg/dL (74-106); Potassium 3.4 mmol/L (3.5-5.1); Sodium 143 mmol/L (136-145); Total Protein 7.2 g/dL (6.4-8.2); Troponin I High Sensitivity 8.1 pg/mL (4.0-76.1)
[2024-12-01 18:15] LABS: Troponin I High Sensitivity 5.1 pg/mL (4.0-76.1)
== END 2024-12-01 18:26 | disposition home or self-care (01) ==
PROVIDERS: Physician Assistant; Emergency Provider Emergency Medicine; PCP Nurse Practitioner Family
DX: R42 Dizziness and giddiness (principal); R00.2 Palpitations; Z79.85 Long-term (current) use of injectable non-insulin antidiabetic drugs; I10 Essential (primary) hypertension
CPT/HCPCS: 36415; 71046; 80053; 84484; 85025; 85610; 85730; 93005; 96360; 99285